=== PATIENT | female | born 2000 | race Caucasian/White ===

== ENCOUNTER 2020-12-18 06:56 | Inpatient (IN) ==
[2020-12-18 07:38] LABS: Hematocrit 32 % (35-47); Hemoglobin 10.3 g/dL (12.0-16.0); Mean Corpuscular HGB Conc 32 g/dL (31-36); Mean Corpuscular Hemoglobin 25 pg (27-31); Mean Corpuscular Volume 77 fL (80-97); Mean Platelet Volume 9.2 fL (7.4-10.4); Platelet Count 257 10^3/uL (150-450); Red Blood Count 4.16 10^6 /uL (3.70-4.87); Red Cell Distribution Width 15 % (10-15); White Blood Count 10.9 10^3/uL (3.5-10.8)
[2020-12-18 07:56] LABS: Albumin 3.6 g/dL (3.2-5.2); Albumin/Globulin Ratio 1.1 (1-3); BUN/Creatinine Ratio 19.6 (8-20); Calcium 9.1 mg/dL (8.6-10.3); Globulin 3.3 g/dL (2-4); Potassium 3.6 mmol/L (3.5-5.0); Total Bilirubin 0.2 mg/dL (0.2-1.0); Total Protein 6.9 g/dL (6.4-8.9)
[2020-12-18] MEDS ORDERED: OBEPIDURAL 250 ML EPIDURAL ONE (08:07)
[2020-12-18] MEDS ORDERED: Buffered Lidocaine 1% SYRIN 1 ml INTRADERM ONE (08:08)
[2020-12-18] MEDS ORDERED: Lactated Ringers 1000 ml BAG 1,000 ML IV ONE ×2 (08:08→14:58)
[2020-12-18] MEDS: Lactated Ringers 1000 ml BAG 1,000 ML IV SCH ×2 (08:37→13:29)
[2020-12-18] MEDS ORDERED: Lidocaine 1% VIAL 10 MG/ML VIAL ONE (08:41)
[2020-12-18 09:34] LABS: Urine Benzodiazepine Screen None Detected (None Detect); Urine Cannabinoids Screen None Detected (None Detect); Urine Opiates Screen None Detected (None Detect)
[2020-12-18 09:46] LABS: Urine Appearance Clear; Urine Bacteria Absent (Absent); Urine Bilirubin Negative (Negative); Urine Blood Negative (Negative); Urine Color Straw; Urine Glucose Negative (Negative); Urine Ketones Negative (Negative); Urine Nitrite Negative (Negative); Urine Protein Negative (Negative); Urine Red Blood Cell Absent (Absent); Urine Specific Gravity 1.005 (1.002-1.030); Urine Urobilinogen Negative (Negative); Urine White Blood Cell Absent (Absent)
[2020-12-18] MEDS ORDERED: Chloroprocaine 3% 20 ml VIAL ONE (10:16)
[2020-12-18 11:11] LABS: HIV 4th Generation Nonreactive (Nonreactive)
[2020-12-18] MEDS ORDERED: Permethrin 1% LOTION 59 ML BTL TOPICAL ONE (13:28)
[2020-12-18] MEDS ORDERED: Oxytocin in LR 20 UNITS/1,000 ML BAG IVPB ONE (13:35)
[2020-12-18] MEDS ORDERED: Sodium Citrate/Citric Acid LIQ 15 ML UDC PO PRN (14:58)
[2020-12-18] MEDS ORDERED: Lactated Ringers 1000 ml BAG 1,000 ML IV SCH ×2 (15:00→18:00)
[2020-12-18] MEDS ORDERED: OBEPIDURAL 250 ML EPIDURAL SCH (15:00)
[2020-12-18] MEDS ORDERED: Oxytocin in LR 20 UNITS/1,000 ML BAG IVPB SCH ×2 (15:00→18:00)
[2020-12-18] MEDS ORDERED: Witch Hazel PAD JAR TOPICAL PRN (17:44)
[2020-12-18] MEDS ORDERED: Dibucaine 1% OINT 28.35 GM TUBE PR PRN (17:44)
[2020-12-19] MEDS ORDERED: RHO D Immune Globulin (HUMAN) 300 MCG = 1,500 I.U. INJ IM ONE (07:50)
[2020-12-19] MEDS ORDERED: Dimethicone Lice Treatment 118 ML TOP.LOTION TOPICAL ONE (08:00)
[2020-12-19 08:24] LABS: Hematocrit 29 % (35-47); Hemoglobin 9.4 g/dL (12.0-16.0); Mean Corpuscular HGB Conc 33 g/dL (31-36); Mean Corpuscular Hemoglobin 25 pg (27-31); Mean Corpuscular Volume 77 fL (80-97); Mean Platelet Volume 8.9 fL (7.4-10.4); Platelet Count 211 10^3/uL (150-450); Red Blood Count 3.73 10^6 /uL (3.70-4.87); Red Cell Distribution Width 16 % (10-15); White Blood Count 9.6 10^3/uL (3.5-10.8)
[2020-12-19 08:33] LABS: ABS Eosinophils 0.1 10^3/ul (0-0.6); ABS Lymphocytes 1.4 10^3/ul (1.0-4.8); ABS Monocytes 0.6 10^3/ul (0-0.8); ABS Neutrophils 7.4 10^3/ul (1.5-7.7); Lymphocyte % 14.9 %
[2020-12-20 10:09] VITALS: BP 124/79
[2020-12-20] MEDS ORDERED: RHO D Immune Globulin (HUMAN) 300 MCG = 1,500 I.U. INJ IM ONE (14:00)
[2020-12-20] MEDS ORDERED: Lidocaine 1% VIAL 10 MG/ML VIAL ONE (17:46)
== END 2020-12-20 14:58 | disposition home or self-care (01) | DRG 560 ==
LOC: MCHOBOUT 06:56 → MCHOB 07:16
PROVIDERS: ADMIT Obstetrics & Gynecology; ATTEND Obstetrics & Gynecology